=== PATIENT | female | born 1935 | race American Indian/Alaskan Native ===

== ENCOUNTER 2016-08-04 06:49 | Day surgery (SDC) | payer MEDICARE ==
[2016-08-04] MEDS ORDERED: NACL 0.9% 500 ML 500 ML IV SCH (08:00)
[2016-08-04] MEDS ORDERED: HEPARIN/NS 5000 UNIT/500ML(CATH LAB) 1,000 ML IR ONE (08:10)
[2016-08-04] MEDS ORDERED: HEPARIN/NS 5000 UNIT/500ML(CATH LAB) 500 ML IR ONE (08:37)
[2016-08-04] MEDS: VERSED ONE ×2 (08:42→08:53)
[2016-08-04] MEDS: SUBLIMAZE ONE ×2 (08:42→08:53)
[2016-08-04] MEDS: XYLOCAINE 2% INFILTRATI ONE ×2 (08:43→08:58)
[2016-08-04] MEDS: HEPARIN 10,000 UNITS/10 ML ONE ×2 (08:43→08:59)
[2016-08-04] MEDS: CALAN ONE ×2 (08:43→08:59)
--- NOTE | 2016-08-04 10:02 | Short Stay Summary ---
Short Stay Documentation Date of service: 08/04/16 - History H&P: obtained from office - Allergies and Medications Current Medications: Allergies No Known Allergies Allergy (Verified 08/04/16 07:25) Home Medications Medication Instructions Recorded Confirmed Last Taken Type Aspirin [Adult Low Dose Aspirin EC] 81 mg PO DAILY 08/04/16 08/04/16 08/03/16 History Carvedilol [Coreg] 25 mg PO BID 08/04/16 08/04/16 08/04/16 07:20 History Lumigan 0.01% 1 drop OU QPM 08/04/16 08/04/16 08/03/16 History Rosuvastatin (Nf) [Crestor] 20 mg PO QHS 08/04/16 08/04/16 08/03/16 History Active Medications Sodium Chloride (Nacl 0.9% 500 Ml) 500 mls @ 50 mls/hr IV DIRECT SUZETTE Stop: 08/04/16 17:59 Last Admin: 08/04/16 08:10 Dose: 50 mls/hr - Brief post op/procedure progress note Date of procedure: 08/04/16 Pre-op diagnosis: abnormal stress test Post-op diagnosis: other (CAD) Procedure: [facility] - see cath report Anesthesia: local Estimated blood loss: none Pathology: none Condition: stable - Disposition Condition at discharge: Stable Disposition: DISCHARGED TO HOME OR SELFCARE - Discharge Diagnoses (1) CAD (coronary artery disease) Status: Chronic Qualifiers: Coronary Disease-Associated Artery/Lesion type: C [place] vs. transplanted heart: N Associated angina: A (2) HTN (hypertension) Status: Chronic Qualifiers: Hypertension type: H (3) Hyperlipidemia Status: Chronic Qualifiers: Hyperlipidemia type: H Short Stay Discharge Plan Activity: advance as tolerated Diet: low fat, low cholesterol, low salt Follow up with: RENA ZHANG MD [Primary Care Provider] - 7 Days NARENDRA KAY MD [Staff Physician] - 7 Days ([place] office on 08/18/2016 @ 11 :30AM)
[2016-08-04 13:02] VITALS: BP 178/61
--- NOTE | 2016-08-04 17:08 | Cardiac Catherization Report ---
INDICATION FOR PROCEDURE: This 80-year-old -[place] female with history of hypertension, hyperlipidemia, is having increasing symptoms of chest pain and shortness of breath. She was tried on medication. Nuclear imaging performed showed suggestion of anterior perfusion defect which can be artifact. However, because of increasing symptoms, she was scheduled for cardiac catheterization for definitive diagnosis and treatment. The patient is aware of the procedure, potential complications and alternatives of therapy available. DESCRIPTION OF PROCEDURE: The patient was brought to the catheterization laboratory in a fasting condition. The right wrist area and forearm thoroughly cleansed with Betadine solution. Sterile drapes were applied. Local anesthesia was achieved in the right wrist area using lidocaine. Subsequently, using a 20-gauge arterial puncture needle, right radial artery puncture was made without any difficulty. Using multipurpose catheter and a 0.035 guidewire including Glidewire able to be advanced into the ascending aorta. Left ventriculogram was performed in [place]ASSAN projections, subsequently left coronary angiography was performed using multipurpose catheter. However, subsequently JR4 catheter and modified Amplatz catheter was used to engage the right coronary artery. At the end of the procedure, catheter and sheath removed and good hemostasis was achieved with pressure bandage. No untoward complications were noted. No significant blood loss was noted. Findings were explained to the patient. Following findings were noted. HEMODYNAMICS: 1. Opening aortic pressure 141/58, left ventricular pressure 148/21. Estimated ejection fraction 65%. 2. Left ventriculogram done in [place]ASSAN projection shows normal sized left ventricle with normal contractility. End-diastolic and systolic volumes are normal. Estimated ejection fraction 65%. Only limited amount of dye was injected. 3. Left coronary artery arises normally from left coronary cusp, left coronary angiography showed left main, LAD and its branches, circumflex artery and its branch without significant disease, angiographically smooth and normal. 4. Right coronary artery dominant vessel arises from somewhat high anteriorly. This shows severe eccentric 95% lesion at the ostium and proximal part; however, distal to this lesion RCA dominant vessel and its branches are angiographically smooth and normal. FINAL IMPRESSION: Normal sized left ventricle with normal contractility. Left coronary system showing no significant angiographic disease. Right coronary artery showing eccentric severe ostial lesion. This is dominant vessel. It is difficult to engage the right coronary artery. At this time, considering the severity and location of the lesion, it was felt PCI of the RCA be attempted at a tertiary care facility is preferable. This will be arranged as an outpatient. Discussed the findings with the patient and also with patient's daughter on the phone. We will arrange for the same at [facility]. Procedure was uncomplicated. JOB# [id number] CRISTIANO/AMBERLY DUONG
== END 2016-08-04 13:00 | disposition home or self-care (01) ==
LOC: OPU 06:49
PROVIDERS: ATTEND Internal Medicine
DX: I25.10 Atherosclerotic heart disease of native coronary artery without angina pectoris (principal); I10 Essential (primary) hypertension; E78.5 Hyperlipidemia, unspecified; Z79.899 Other long term (current) drug therapy; Z72.89 Other problems related to lifestyle; Z82.49 Family history of ischemic heart disease and other diseases of the circulatory system; Z82.3 Family history of stroke
CPT/HCPCS: 93005; 93010; 93458; C1769; C1894; J1644; J2250; J3010; J7040; Q9967